=== PATIENT | male | born 1990 | race Caucasian/White ===

== ENCOUNTER 2017-10-23 11:51 | Emergency (ER) | payer OTHER ==
--- NOTE | 2017-10-23 12:35 | ED ---
Skin/Abscess/FB HPI - General Chief complaint: Skin/Abscess/Foreign Body Stated complaint: family member with staph infection Time Seen by Provider: 10/23/17 12:11 Source: patient Mode of arrival: ambulatory Limitations: no limitations - History of Present Illness Initial comments: 27-year-old male complains of abscess-like lesion to the left upper abdomen for 2 days. Patient states he noticed a pimple-like lesion in which he tried to squeeze and pulling hair out and now he has developed a little bit more discomfort and some drainage. Patient denies any fever but does feel flushed at times. No nausea no vomiting no fevers. Patient denies any history of this history of MRSA. Patient's brother was admitted to seek for abscess and cellulitis due to MRSA the patient's nervous. Patient states he has had some pustular discharge from the wound. Patient states he is only in mild discomfort MD complaint: abscess/boil (Left upper abdomen) -: days(s) (2) - Related Data Previous Rx's Medication Instructions Recorded Sulfamethox-Tmp 800-160Mg [Bactrim 1 each PO Q12HR #28 tab 10/23/17 DS 800-160 mg] Review of Systems ROS Statement: Those systems with pertinent positive or pertinent negative responses have been documented in the HPI. ROS Other: All systems not noted in ROS Statement are negative. Constitutional: Denies: fever, chills Gastrointestinal: Denies: nausea, vomiting Skin: Reports: lesions Past Medical History Past Medical History: No Reported History History of Any Multi-Drug Resistant Organisms: None Reported Past Surgical History: Orthopedic Surgery Additional Past Surgical History / Comment(s): dental femur laser eye surg Past Psychological History: No Psychological Hx Reported Smoking Status: Never smoker Past Alcohol Use History: Rare Past Drug Use History: None Reported General Exam Limitations: no limitations General appearance: alert, in no apparent distress Respiratory exam: Present: normal lung sounds bilaterally. Absent: respiratory distress, wheezes, rales, rhonchi, stridor Cardiovascular Exam: Present: regular rate, normal rhythm, normal heart sounds. Absent: systolic murmur, diastolic murmur, rubs, gallop, clicks GI/Abdominal exam: Present: soft, normal bowel sounds. Absent: distended, tenderness, guarding, rebound, rigid Neurological exam: Present: alert, oriented X3, CN II-XII intact Psychiatric exam: Present: normal affect, normal mood Skin exam: Present: warm, dry, normal color. Absent: intact (3 mm opening to the left upper abdomen with induration surrounding opening in the skin. No erythematous area nontender to palpation. Induration is about 1.5 cm surround no swelling no drainage or pustular discharge at this time however culture was obtained), rash Course Vital Signs 10/23/17 12:02 Temperature 97.9 F Pulse Rate 133 H Respiratory 18 Rate Blood Pressure 161/96 O2 Sat by Pulse 100 Oximetry Medical Decision Making - Medical Decision Making Discussed the possibility of MRSA with this patient due to the fact that his brother does currently have MRSA. Due to no erythematous region or pustular discharge , We will treat with Bactrim today out patient, patient take prescription fully and await culture results. Patient should follow up closely if not improving return to the ER symptoms progressive or worsening such as increased pain swelling redness or fevers. Patient aware Disposition Clinical Impression: Abscess Disposition: HOME SELF-CARE Condition: Good Instructions: Abscess (ED) Prescriptions: Sulfamethox-Tmp 800-160Mg [Bactrim DS 800-160 mg] 1 each PO Q12HR #28 tab Referrals: Joe Childers DO [Primary Care Provider] - 1-2 days Time of Disposition: 12:34
[2017-10-23 13:44] VITALS: BP 158/79; PULSE 94; RESP 16; TEMP 98
== END 2017-10-23 13:43 | disposition home or self-care (01) ==
LOC: EC 11:51
DX: L02.211 Cutaneous abscess of abdominal wall (principal)
CPT/HCPCS: 87070; 87077; 87186; 87205; 99283